=== PATIENT | female | born 1950 | race Asian ===

== ENCOUNTER → 2016-09-22 | Outpatient (CLI) | payer OTHER ==
--- NOTE | 2016-09-22 16:41 | DX ---
Left hand series 3 views 1215 hours. History: Left hand pain. Tenderness over pisiform. Fell on outstretched hand. (79.642, S [id number]) Findings: Osseous structures appear to be intact without evidence of fracture. Joint spaces are violette l. Soft tissues are unremarkable. Impression: 1. Normal left hand series.
== END ==
LOC: FIMAGING 12:09
PROVIDERS: ATTEND Nurse Practitioner Family
DX: M79.642 Pain in left hand (principal); W19.XXXA Unspecified fall, initial encounter

== ENCOUNTER → 2017-12-01 | Outpatient (CLI) | payer OTHER | LOC: FLAB 13:17 | PROVIDERS: ATTEND Family Medicine | DX: M17.0 Bilateral primary osteoarthritis of knee (principal) ==

== ENCOUNTER → 2018-05-11 | Outpatient (CLI) | payer OTHER | LOC: FIMAGING 12:39 | PROVIDERS: ATTEND Family Medicine | DX: M25.512 Pain in left shoulder (principal) ==